=== PATIENT | female | born 1935 | race Caucasian/White ===

== ENCOUNTER 2017-07-17 20:46 | Emergency (ER) | payer MEDICARE ==
[~2017-07-17] VITALS: Ht 160 cm; Wt 56.5 kg
[2017-07-17 20:59] VITALS: BP 179/87; PULSE 89; RESP 16; TEMP 97.9; O2SAT 97
--- NOTE | 2017-07-17 21:50 | PD ---
HPI Chief Complaint: Abdominal Pain Time Seen by Provider: 21:50 Travel History International Travel<30 days: No Contact w/Intl Traveler<30days: No Traveled to known affect area: No History of Present Illness HPI 81-year-old female came to the emergency room with history of sudden onset severe lower abdominal pain. Patient says it started in the right lower quadrant and immediately radiated to the suprapubic area and left lower quadrant. Since then she has had this intense pain. It started around 3 PM today. Patient tried taking Gas-X twice thinking that it was a gas pain and the Gas-X would relieve. However it has not relieved her pain. Currently her pain is 8-9 out of 10. She also noticed that her blood pressure had gone up significantly during this painful episode. Patient did eat her dinner in spite of the pain and has kept it down. No history of vomiting. She has been nauseous to some extent. No history of hematuria dysuria. Patient has never explained this kind of pain in the past. She had a colonoscopy done May of last year which was within normal limits. She is otherwise a relatively healthy person and not on any medications. Vital signs were stable. She appears anxious and in moderate distress. No aggravating or relieving factors identified for this pain. Patient has had 2 episodes of stool today and 1 loose stool. [facility] Past Medical History Narrative Medical List of her past medical, surgical, social and family history is reviewed from the nursing note. Medical History: Denies Significant Hx Cardiovascular Problems: Yes (mitral valve prolapse) Tetanus Vaccination: < 5 Years Influenza Vaccination: No Past Surgical History Joint Replacement: Yes (Bilateral knee) Social History Alcohol Use: Yes (1 glass wine daily) Tobacco Use: No Substance Use: No Allergies-Medications (Allergen,Severity, Reaction): Coded Allergies: acetaminophen (Verified Allergy, Intermediate, 07/17/17) hydrocodone (Verified Allergy, Intermediate, 07/17/17) hydromorphone (Verified Allergy, Intermediate, 07/17/17) morphine (Verified Allergy, Intermediate, 07/17/17) No Known Drug Allergies (Verified Allergy, Unknown, 07/17/17) Comments No known drug allergies. Reported Meds & Prescriptions Reported Meds & Active Scripts Active No Active Prescriptions or Reported Medications Narrative Medication List of her home medications reviewed from the nursing Review of Systems Except as stated in HPI: all other systems reviewed are Neg Gastrointestinal: Positive: Nausea, Abdominal Pain Physical Exam Narrative GENERAL: Awake, alert, elderly, anxious, moderate distress SKIN: Focused skin assessment warm/dry. HEAD: Atraumatic. Normocephalic. EYES: Pupils equal and round. No scleral icterus. No injection or drainage. ENT: No nasal bleeding or discharge. Mucous membranes pink and moist. NECK: Trachea midline. No JVD. CARDIOVASCULAR: Regular rate and rhythm. No murmur appreciated. RESPIRATORY: No accessory muscle use. Clear to auscultation. Breath sounds equal bilaterally. GASTROINTESTINAL: Abdomen soft, non-tender, nondistended. Hepatic and splenic margins not palpable. MUSCULOSKELETAL: No obvious deformities. No clubbing. No cyanosis. No edema. NEUROLOGICAL: Awake and alert. No obvious cranial nerve deficits. Motor grossly within normal limits. Normal speech. PSYCHIATRIC: Appropriate mood and affect; insight and judgment normal. Data Data Last Documented VS Vital Signs Date Time Temp Pulse Resp B/P (MAP) Pulse Ox O2 Delivery O2 Flow Rate FiO2 07/18/17 00:00 82 20 113/58 (76) 99 07/17/17 22:42 Room Air 07/17/17 20:59 97.9 Orders Orders Complete Blood Count With Diff (07/17/17 21:56) Comprehensive Metabolic Panel (07/17/17 21:56) Lipase (07/17/17 21:56) Urinalysis - C+S If Indicated (07/17/17 21:56) Ct Abd/Pel W/O Iv Contrast (07/17/17 21:56) Iv Access Insert/Monitor (07/17/17 21:56) Ecg Monitoring (07/17/17 21:56) Oximetry (07/17/17 21:56) Sodium Chloride 0.9% Flush (Ns Flush) (07/17/17 22:00) Ketorolac Inj (Toradol Inj) (07/17/17 22:00) Metoclopramide Inj (Reglan Inj) (07/17/17 22:00) Morphine Inj (Morphine Inj) (07/17/17 23:15) Sodium Chlorid 0.9% 500 Ml Inj (Ns 500 M (07/17/17 23:15) Ed Discharge Order (07/17/17 23:23) Labs Laboratory Tests Test 07/17/17 22:00 White Blood Count 5.8 TH/MM3 Red Blood Count 4.27 MIL/MM3 Hemoglobin 13.2 GM/DL Hematocrit 39.1 % Mean Corpuscular Volume 91.5 FL Mean Corpuscular Hemoglobin 31.0 PG Mean Corpuscular Hemoglobin Concent 33.9 % Red Cell Distribution Width 13.5 % Platelet Count 181 TH/MM3 Mean Platelet Volume 7.5 FL Neutrophils (%) (Auto) 70.5 % Lymphocytes (%) (Auto) 18.8 % Monocytes (%) (Auto) 8.6 % Eosinophils (%) (Auto) 1.8 % Basophils (%) (Auto) 0.3 % Neutrophils # (Auto) 4.1 TH/MM3 Lymphocytes # (Auto) 1.1 TH/MM3 Monocytes # (Auto) 0.5 TH/MM3 Eosinophils # (Auto) 0.1 TH/MM3 Basophils # (Auto) 0.0 TH/MM3 CBC Comment DIFF FINAL Differential Comment Urine Color LIGHT-YELLOW Urine Turbidity HAZY Urine pH 6.5 Urine Specific [place] 1.015 Urine Protein NEG mg/dL Urine Glucose (UA) NEG mg/dL Urine Ketones NEG mg/dL Urine Occult Blood NEG Urine Nitrite NEG Urine Bilirubin NEG Urine Urobilinogen LESS THAN 2.0 MG/DL Urine Leukocyte Esterase NEG Urine RBC LESS THAN 1 /hpf Urine WBC LESS THAN 1 /hpf Urine Mucus FEW /lpf Microscopic Urinalysis Comment CULT NOT INDICATED Blood Urea Nitrogen 24 MG/DL Creatinine 0.76 MG/DL Random Glucose 100 MG/DL Total Protein 7.0 GM/DL Albumin 3.6 GM/DL Calcium Level 9.2 MG/DL Alkaline Phosphatase 73 U/L Aspartate Amino Transf (AST/SGOT) 22 U/L Alanine Aminotransferase (ALT/SGPT) 19 U/L Total Bilirubin 0.3 MG/DL Sodium Level 139 MEQ/L Potassium Level 3.9 MEQ/L Chloride Level 105 MEQ/L Carbon Dioxide Level 26.2 MEQ/L Anion Gap 8 MEQ/L Estimat Glomerular Filtration Rate 73 ML/MIN Lipase 121 U/L [facility] Medical Decision Making Medical Screen Exam Complete: Yes Emergency Medical Condition: Yes Medical Record Reviewed: Yes Differential Diagnosis Acute diverticulitis, UTI, acute appendicitis Narrative Course 11:13 PM blood test results are back and within acceptable limits. UA is negative. CT scan of her abdomen and pelvis is rather unremarkable. Patient was given Toradol initially for pain but the nurse just informed me that that has not brought much relief to her. I just ordered morphine for the pain. 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 There is no other source of her pain identified on the workup. Procedures EKG Prior to Arrival: No Diagnosis Primary Impression: Abdominal pain Qualified Codes: R10.30 - Lower abdominal pain, unspecified Additional Impression: Diarrhea Qualified Codes: R19.7 - Diarrhea, unspecified Referrals: Primary Care Physician 2 days Additional Instructions: Take Tylenol/Motrin/Advil/ibuprofen if the pain returns. Warm bath or hot water bag may help with the pain relief as well. Drinking chamomile tea or tea in general would be helpful. Return to the ER if condition worsens any other new concerns. Otherwise follow-up with your primary care. Med/Other Pt SpecificInfo: No Change to Meds Scripts No Active Prescriptions or Reported Meds Disposition: 01 DISCHARGE HOME Condition: Stable Cheryl Liu MD Jul 17, 2017 21:50
[2017-07-17] MEDS ORDERED: METOCLOPRAMIDE HCL 10 MG/2 ML VIAL IV PUSH ONE (22:00)
[2017-07-17] MEDS ORDERED: KETOROLAC TROMETHAMINE 30 MG/ML (IVP) VIAL IV PUSH ONE (22:00)
[2017-07-17] MEDS ORDERED: SODIUM CHLORIDE 0.9% FLUSH 10 ML FLUSH IV FLUSH PRN (22:00)
[2017-07-17 22:13] VITALS: BP 183/105; PULSE 65; RESP 20; O2SAT 98
[2017-07-17 22:14] VITALS: BP 164/92; PULSE 64
[2017-07-17 22:24] LABS: AUTOMATED NEUTROPHIL # 4.1 TH/MM3 (1.8-7.7); BASOPHIL % 0.3 % (0.0-2.0); EOSINOPHIL # 0.1 TH/MM3 (0-0.4); EOSINOPHIL % 1.8 % (0.0-4.0); HEMATOCRIT 39.1 % (35.0-46.0); HEMOGLOBIN 13.2 GM/DL (11.6-15.3); LYMPH % 18.8 % (9.0-44.0); LYMPHOCYTE # 1.1 TH/MM3 (1.0-4.8); MEAN CELL VOLUME 91.5 FL (80.0-100.0); MEAN CORPUSCULAR HGB CONC 33.9 % (32.0-36.0); MEAN PLATELET VOLUME 7.5 FL (7.0-11.0); MONO % 8.6 % (0.0-8.0); MONOCYTE # 0.5 TH/MM3 (0-0.9); NEUT % 70.5 % (16.0-70.0); PLATELET COUNT 181 TH/MM3 (150-450); RED BLOOD COUNT 4.27 MIL/MM3 (4.00-5.30); RED CELL DISTRIBUTION WIDTH 13.5 % (11.6-17.2); WHITE BLOOD COUNT 5.8 TH/MM3 (4.0-11.0)
[2017-07-17 22:32] LABS: BILIRUBIN, URINE NEG (NEG); BLOOD, URINE NEG (NEG); GLUCOSE,URINE NEG (NEG); KETONE, URINE NEG (NEG); MUCUS URINE FEW /lpf (OCC); NITRITE,URINE NEG (NEG); PH, URINE 6.5 (5.0-8.5); URINE COLOR LIGHT-YELLOW (YELLW/STRAW); URINE LEUKOCYTE ESTERASE NEG (NEG)
--- NOTE | 2017-07-17 22:39 | RADRPT ---
EXAM DATE: 07/17/2017 10:33 PM EDT AGE/SEX: 81 years / Female INDICATIONS: Lower abdominal pain. CLINICAL DATA: This is the patient's initial encounter. Patient reports that signs and symptoms have been present for 1 day and indicates a pain score of 9/10. MEDICAL/SURGICAL HISTORY: Cardiovascular disease. None. RADIATION DOSE: 5.89 CTDI (mGy) COMPARISON: No prior [place] exams available for comparison. TECHNIQUE: Multiple contiguous axial images were obtained through the abdomen. Images were obtained using multiple row detector helical technique. Using dose reduction techniques, radiation dose was ke pt as low as reasonably achievable to obtain optimal diagnostic quality images. FINDINGS: Lower Lungs: Bibasilar atelectasis and/or fibrotic scarring is noted. Liver: The liver has a homogeneous density without space-occupying lesion. There is no dilation of th e biliary tree. Spleen: Homogeneous density without enlargement. Pancreas: Unremarkable without mass or calcification. Kidneys: Normal in size and shape. No evidence of mass or hydronephrosis. Adrenal Glands: Unremarkable. Aorta: The aorta and proximal iliac vessels are grossly unremarkable without aneurysmal dilation. Bowel/Mesentery: The bowel loops are grossly unremarkable. The cecum and sigmoid colon have a normal configuration. The appendix is normal. Abdominal Wall: Intact. Retroperitoneum: No evidence of adenopathy in the retrocrural, para-aortic, or deep pelvic regions. Bladder: Contours are smooth. Reproductive Organs: No abnormal masses or calcifications seen. Inguinal: The inguinal region is unremarkable without evidence of adenopathy. Bony Structures: Degenerative changes and scoliosis of the thoracolumbar spine are noted. Degenerati ve changes involving the hip joints are noted bilaterally. CONCLUSION: 1. No acute intra-abdominal process. 2. Degenerative changes and scoliosis of the thoracolumbar spine. 3. Degenerative changes involving the hip joints bilaterally. 4. Bibasilar atelectasis and/or fibrotic scarring. Electronically signed by: Sonu Harley MD 07/17/2017 10:38 PM EDT
[2017-07-17 22:42] VITALS: BP 160/78; PULSE 66; RESP 20; O2SAT 97
[2017-07-17 22:44] LABS: ALBUMIN 3.6 GM/DL (3.4-5.0); AST (GOT) 22 U/L (15-37); BICARBONATE 26.2 MEQ/L (21.0-32.0); BLOOD UREA NITROGEN 24 MG/DL (7-18); CALCIUM 9.2 MG/DL (8.5-10.1); CHLORIDE 105 MEQ/L (98-107); CREATININE 0.76 MG/DL (0.50-1.00); GLOMERULAR FILTRATION RATE 73 ML/MIN (>89); GLUCOSE,RANDOM 100 MG/DL (74-106); SODIUM (NA) 139 MEQ/L (136-145)
[2017-07-17 22:45] LABS: ALT (GPT) 19 U/L (10-53)
[2017-07-17 22:47] LABS: ALKALINE PHOSPHATASE 73 U/L (45-117); TOTAL BILIRUBIN ADULT 0.3 MG/DL (0.2-1.0)
[2017-07-17] MEDS ORDERED: SODIUM CHLORID 0.9% 500 ML INJ 500 ML IV ONE (23:15)
[2017-07-17] MEDS ORDERED: MORPHINE SULFATE 8 MG/ML INJ IV PUSH ONE (23:15)
[2017-07-17 23:50] VITALS: RESP 20
[2017-07-18] VITALS: BP 113/58
== END 2017-07-18 00:03 | disposition home or self-care (01) ==
LOC: NEPD 20:46
DX: R10.30 Lower abdominal pain, unspecified (principal); R19.7 Diarrhea, unspecified; R11.0 Nausea; I34.1 Nonrheumatic mitral (valve) prolapse; M51.35 Other intervertebral disc degeneration, thoracolumbar region; M41.9 Scoliosis, unspecified; Z88.6 Allergy status to analgesic agent; Z88.5 Allergy status to narcotic agent
CPT/HCPCS: 74176; 80053; 81001; 83690; 85025; 96361; 96374; 96375; 99284; J1885; J2765; J7040